=== PATIENT | female | born 1995 | race Caucasian/White ===

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

== ENCOUNTER 2017-09-20 14:40 | Emergency (ER) | payer MEDICAID ==
[~2017-09-20 14:40] MED LIST: ZITHTAB PO
[2017-09-20 14:41] VITALS: BP 158/83; PULSE 86; RESP 16; TEMP 97.7; O2SAT 99
[2017-09-20] MEDS ORDERED: LEXA5TAB PO (15:43)
[2017-09-20] MEDS ORDERED: AMPH1TAB40 PO (15:43)
[2017-09-20] MEDS ORDERED: TRAZ50TA12 PO (15:43)
--- NOTE | 2017-09-20 15:57 | PD ---
HPI . Upper respiratory symptoms Chief Complaint: ENT Complaint Time Seen by Provider: 14:52 Travel History International Travel<30 days: No Contact w/Intl Traveler<30days: No Traveled to known affect area: No History of Present Illness HPI 22-year-old female presents emergency department for evaluation of right ear pressure, nasal congestion, cough and sore throat. The right ear pressure has been present 2 days. The nasal congestion and sore throat has been several weeks. Patient was treated 3 weeks ago for strep throat. Patient denies any fever, chills, chest pain, shortness breath, abdominal pain, nausea, vomiting, diarrhea. Patient's only major medical history is depression. PFSH Past Medical History Asthma: No Heart Rhythm Problems: No Chest Pain: No GERD: No Headaches: No ?: Not LMP: 09/06/2017 Social History Tobacco Use: No Substance Use: No Allergies-Medications (Allergen,Severity, Reaction): Coded Allergies: amoxicillin (Unverified Allergy, Severe, 09/20/17) Reported Meds & Prescriptions Reported Meds & Active Scripts Active Reported Lexapro (Escitalopram Oxalate) 5 Mg Tab 5 Mg PO DAILY Trazodone (Trazodone HCl) 50 Mg Tab 50 Mg PO HS Adderall (Amphetamine-Dextroamphetamine) 7.5 Mg Tab 7.5 Mg PO DAILY Avoid late evening doses. Space doses at least 4 to 6 hours if more than once/day dosing. Review of Systems Except as stated in HPI: all other systems reviewed are Neg HENT: Positive: Sore Throat, Congestion, Earache (right-sided) Respiratory: Positive: Cough Physical Exam Narrative GENERAL: Well-nourished, well-developed 22-year-old female patient in no acute distress. Nontoxic appearing. SKIN: Focused skin assessment warm/dry. HEAD: Normocephalic. Atraumatic. EYES: No scleral icterus. No injection or drainage. EARS: Bilateral pinnae and external canals appear within normal limits. Bilateral tympanic membranes without erythema, dullness or perforation. Mild to moderate wax buildup noted in bilateral ear canals. THROAT: Mild pharyngeal injection with tonsillar hypertrophy noted. No exudates. Airway is patent. NECK: Supple, trachea midline. No JVD or lymphadenopathy. CARDIOVASCULAR: Regular rate and rhythm without murmurs, gallops, or rubs. RESPIRATORY: Breath sounds equal bilaterally. No accessory muscle use. GASTROINTESTINAL: Abdomen soft, non-tender, nondistended. MUSCULOSKELETAL: No cyanosis, or edema. Data Data Last Documented VS Vital Signs Date Time Temp Pulse Resp B/P (MAP) Pulse Ox O2 Delivery O2 Flow Rate FiO2 09/20/17 14:41 97.7 86 16 158/83 (108) 99 Orders Orders Ed Urine Pregnancytest Poc (09/20/17 15:22) Group A Rapid Strep Screen (09/20/17 15:52) Strep Culture (Group A) (09/20/17 16:00) MDM Medical Decision Making Medical Screen Exam Complete: Yes Emergency Medical Condition: Yes Differential Diagnosis Differential diagnoses include but are not limited to pharyngitis, otitis media , URI Narrative Course 22-year-old female patient presents emergency department for evaluation of right ear pressure, cough, nasal congestion and sore throat. Patient was treated 3 weeks ago for strep pharyngitis. On physical exam is noted that the patient's pharyngeal region is mildly erythematous with bilateral tonsillar hypertrophy. Rapid strep ordered and pending. Rapid strep negative. Patient will be discharged home with supportive care, prescription for Claritin and Flonase. Patient given instructions to return the emergency Department with any worsening condition but otherwise follow-up primary care. Diagnosis Primary Impression: Upper respiratory infection Qualified Codes: J06.9 - Acute upper respiratory infection, unspecified Referrals: Primary Care Physician Patient Instructions: General Instructions, Upper Respiratory Infection (ED) Additional Instructions: Please return to emergency department if your symptoms return or worsen. Follow up with your primary care provider. Take medications as prescribed. Supportive care, stay hydrated, get enough rest, diet as tolerated [id number] Ibuprofen or Tylenol as needed for pain or fevers. Med/Other Pt SpecificInfo: Prescription(s) given Scripts Fluticasone Nasal [place] (Flonase Nasal [place]) 50 Mcg/Act [place] 50 MCG EACH NARE BID for Allergies, #1 BOTTLE 0 Refills Prov: Hannah Pierce 09/20/17 Loratadine (Claritin) 10 Mg Cap 10 MG PO DAILY for Allergy Management for 14 Days, #14 CAP 0 Refills Prov: Hannah Pierce 09/20/17 Disposition: 01 DISCHARGE HOME Condition: Stable Hannah Pierce Sep 20, 2017 15:57
[2017-09-20] MEDS ORDERED: CLAR10CA3 PO (16:44)
[2017-09-20] MEDS ORDERED: FLUT1SPR5 EACH NARE (16:44)
== END 2017-09-20 17:21 | disposition home or self-care (01) ==
LOC: NEPK 14:40
DX: J06.9 Acute upper respiratory infection, unspecified (principal); Z79.899 Other long term (current) drug therapy; Z88.0 Allergy status to penicillin
CPT/HCPCS: 84703; 87081; 87880; 99284

== ENCOUNTER 2017-11-10 11:03 | Emergency (ER) | payer MEDICAID ==
[~2017-11-10] VITALS: Ht 152.4 cm; Wt 81.8 kg
[~2017-11-10 11:03] MED LIST changes: +AMPH1TAB40 PO; +CLAR10CA3 PO; +FLUT1SPR5 EACH NARE; +LEXA5TAB PO; +TRAZ50TA12 PO; -ZITHTAB PO
[2017-11-10 11:04] VITALS: BP 146/74; PULSE 100; RESP 18; TEMP 98; O2SAT 99
[2017-11-10] MEDS ORDERED: OSEL75 PO (12:04)
--- NOTE | 2017-11-10 12:13 | PD ---
HPI Chief Complaint: Cold / Flu Symptoms Time Seen by Provider: 11:51 Travel History International Travel<30 days: No Contact w/Intl Traveler<30days: No Traveled to known affect area: No History of Present Illness HPI 22-year-old female that presents to the ED for evaluation of cold-like symptoms. Patient has a history of a son who was recently diagnosed with the flu in this hospital as well as multiple family members are currently staying with her to have been diagnosed with the flu themselves. They all been put on Tamiflu and she states that she's had symptoms for about 2 days that are similar to everybody else's. Per patient she's having body aches, fevers, sore throat, cough and congestion. She has no medical issues. No chest pain or shortness of breath. She denies any history of asthma or smoking. She has an allergy to amoxicillin. She denies any possibility of . No other medical issues. She is taking OTC meds with minimal relief. She denies any other medical issues. No recent travel. PFSH Past Medical History Asthma: No Heart Rhythm Problems: No Chest Pain: No GERD: No Headaches: No ?: Not LMP: 10/27/2017 Social History Tobacco Use: No Substance Use: No Allergies-Medications (Allergen,Severity, Reaction): Coded Allergies: amoxicillin (Unverified Allergy, Severe, 09/20/17) Reported Meds & Prescriptions Reported Meds & Active Scripts Active Tamiflu (Oseltamivir Phosphate) 75 Mg Cap 75 Mg PO BID 5 Days Flonase Nasal [place] (Fluticasone Nasal [place]) 50 Mcg/Act [place] 50 Mcg EACH NARE BID Claritin (Loratadine) 10 Mg Cap 10 Mg PO DAILY 14 Days Reported Lexapro (Escitalopram Oxalate) 5 Mg Tab 5 Mg PO DAILY Trazodone (Trazodone HCl) 50 Mg Tab 50 Mg PO HS Adderall (Amphetamine-Dextroamphetamine) 7.5 Mg Tab 7.5 Mg PO DAILY Avoid late evening doses. Space doses at least 4 to 6 hours if more than once/day dosing. Review of Systems Except as stated in HPI: all other systems reviewed are Neg Physical Exam Narrative GENERAL: Well-nourished, well-developed patient in no apparent distress. SKIN: Warm and dry. HEAD: Atraumatic. Normocephalic. EYES: Pupils equal and round reactive to light and accommodation. No scleral icterus. No injection or drainage. ENT: No nasal bleeding or discharge. Mucous membranes pink and moist. TMs are clear with no sign of infection or perforation. No mastoid tenderness. Ear canals are intact bilaterally. No lymphadenopathy. Nostril mucosa is red and moist with clear mucus noted. No sinus tenderness to palpation noted. Tonsils are not enlarged or swollen. No ulvua Deviation. Tongue is midline. NECK: Trachea midline. No JVD. No meningeal signs noted CARDIOVASCULAR: Regular rate and rhythm. RESPIRATORY: No accessory muscle use. Clear to auscultation. Breath sounds equal bilaterally. GASTROINTESTINAL: Abdomen soft, non-tender, nondistended. Hepatic and splenic margins not palpable. MUSCULOSKELETAL: Extremities without clubbing, cyanosis, or edema. No obvious deformities. NEUROLOGICAL: Awake and alert. No obvious cranial nerve deficits. Motor grossly within normal limits. Five out of 5 muscle strength in the arms and legs. Normal speech. PSYCHIATRIC: Appropriate mood and affect; insight and judgment normal. Data Data Last Documented VS Vital Signs Date Time Temp Pulse Resp B/P (MAP) Pulse Ox O2 Delivery O2 Flow Rate FiO2 11/10/17 11:04 98.0 100 18 146/74 (98) 99 Room Air Orders Orders Influenzae A/B Antigen (11/10/17 11:21) Ed Discharge Order (11/10/17 12:13) MDM Medical Decision Making Medical Screen Exam Complete: Yes Emergency Medical Condition: Yes Medical Record Reviewed: Yes Interpretation(s) flu negative Differential Diagnosis Influenza versus viral illness versus pneumonia versus bronchitis Narrative Course 22-year-old female that presents to the ED for evaluation of possible flu. Patient was properly examined and was found to have signs and symptoms which appear to be very consistent with influenza. Patient has multiple family members that have been diagnosed with the flu with test. Flu test was done in triage and was negative. I am concern this might be a false negative as she does have multiple family members with diagnosed flu by test at her home. Patient will be given prescription for Tamiflu to cover for this, she was told of potential side effects. Told to take OTC meds as needed. Follow with PCP. See ED worsening symptoms. Diagnosis Primary Impression: Influenza Patient Instructions: General Instructions Departure Forms: Tests/Procedures, Work Release Enter return to work date: Nov 13, 2017 Additional Instructions: Motrin and Tylenol for pain and fever. You can use [id number] antihistamine as well as well as Mucinex as needed for runny nose and congestion. Cough drops for cough as needed. Drink plenty of fluids. Follow-up with PCP. See ED for worsening symptoms. Med/Other Pt SpecificInfo: Prescription(s) given Scripts Oseltamivir (Tamiflu) 75 Mg Cap 75 MG PO BID for Mgmt Viral Infection for 5 Days, #10 CAP 0 Refills Prov: Mariah Tompkins MD 11/10/17 Disposition: 01 DISCHARGE HOME Condition: Stable Holland Cartwright Nov 10, 2017 12:13
== END 2017-11-10 13:55 | disposition home or self-care (01) ==
LOC: NEPD 11:03
DX: J11.1 Influenza due to unidentified influenza virus with other respiratory manifestations (principal); Z88.0 Allergy status to penicillin; Z79.899 Other long term (current) drug therapy
CPT/HCPCS: 87804; 99283

== ENCOUNTER 2017-11-25 12:07 | Emergency (ER) | payer MEDICAID ==
[~2017-11-25] VITALS: Ht 152.4 cm; Wt 84.1 kg
[~2017-11-25 12:07] MED LIST changes: +OSEL75 PO
[2017-11-25 12:09] VITALS: BP 148/82; PULSE 107; RESP 16; TEMP 97.9; O2SAT 100
--- NOTE | 2017-11-25 13:00 | PD ---
HPI Chief Complaint: Chest Pain Time Seen by Provider: 12:43 Travel History International Travel<30 days: No Contact w/Intl Traveler<30days: No Traveled to known affect area: No History of Present Illness HPI This is a 22-year-old female who presents to the emergency department having woken up in the middle the night feeling some left-sided chest discomfort described as sharp and stabbing associated with numbness and tingling all over her body. She got up and walked and then felt generally weak and slumped over. She did not completely pass out. Her symptoms have since resolved. She reports that over the past several months she has been having palpitations and feeling like her heart races. She has never had a checked out. She denies hypertension, hyperlipidemia, diabetes, smoking, drug use and family history is significant for her father having had a stroke in his 30s but he was a drug user at the time. There is no sudden history in the family. PFSH Past Medical History Asthma: No Heart Rhythm Problems: No Chest Pain: No Diminished Hearing: No GERD: No Headaches: No ?: Not Past Surgical History Section: Yes (x 1) Gynecologic Surgery: Yes ( ) Social History Alcohol Use: Yes (occ) Tobacco Use: No Substance Use: No Allergies-Medications (Allergen,Severity, Reaction): Coded Allergies: amoxicillin (Unverified Allergy, Severe, 11/25/17) Reported Meds & Prescriptions Reported Meds & Active Scripts Active No Active Prescriptions or Reported Medications Review of Systems Except as stated in HPI: all other systems reviewed are Neg Physical Exam Narrative GENERAL:Well appearing, no acute distress SKIN: Focused skin assessment warm and dry. HEAD: Atraumatic. Normocephalic. EYES: Pupils equal and round. No injection or drainage. ENT: Moist mucous membranes NECK: Trachea midline. CARDIOVASCULAR: Regular rate and rhythm. No murmur appreciated. RESPIRATORY: Clear to auscultation. Breath sounds equal bilaterally. GASTROINTESTINAL: Abdomen soft, non-tender, nondistended. MUSCULOSKELETAL: No obvious deformities. NEUROLOGICAL: Awake and alert. No obvious cranial nerve deficits. Moving all extremities. PSYCHIATRIC: Appropriate mood and affect; insight and judgment normal. Data Data Last Documented VS Vital Signs Date Time Temp Pulse Resp B/P (MAP) Pulse Ox O2 Delivery O2 Flow Rate FiO2 11/25/17 12:09 97.9 107 16 148/82 (104) 100 Orders Orders Electrocardiogram (11/25/17 12:27) Basic Metabolic Panel (Bmp) (11/25/17 12:27) Ckmb (Isoenzyme) Profile (11/25/17 12:27) Complete Blood Count With Diff (11/25/17 12:27) Magnesium (Mg) (11/25/17 12:27) Troponin I (11/25/17 12:27) Chest, Pa & Lat (11/25/17 12:27) Ed Urine Pregnancytest Poc (11/25/17 12:27) Labs Laboratory Tests Test 11/25/17 13:00 White Blood Count 9.8 TH/MM3 Red Blood Count 4.33 MIL/MM3 Hemoglobin 13.6 GM/DL Hematocrit 39.5 % Mean Corpuscular Volume 91.1 FL Mean Corpuscular Hemoglobin 31.4 PG Mean Corpuscular Hemoglobin Concent 34.4 % Red Cell Distribution Width 13.3 % Platelet Count 325 TH/MM3 Mean Platelet Volume 7.6 FL Neutrophils (%) (Auto) 63.4 % Lymphocytes (%) (Auto) 28.6 % Monocytes (%) (Auto) 6.1 % Eosinophils (%) (Auto) 1.5 % Basophils (%) (Auto) 0.4 % Neutrophils # (Auto) 6.2 TH/MM3 Lymphocytes # (Auto) 2.8 TH/MM3 Monocytes # (Auto) 0.6 TH/MM3 Eosinophils # (Auto) 0.1 TH/MM3 Basophils # (Auto) 0.0 TH/MM3 CBC Comment DIFF FINAL Differential Comment Blood Urea Nitrogen 16 MG/DL Creatinine 0.74 MG/DL Random Glucose 89 MG/DL Calcium Level 9.0 MG/DL Magnesium Level 1.9 MG/DL Sodium Level 138 MEQ/L Potassium Level 4.1 MEQ/L Chloride Level 105 MEQ/L Carbon Dioxide Level 28.7 MEQ/L Anion Gap 4 MEQ/L Estimat Glomerular Filtration Rate 100 ML/MIN Total Creatine Kinase 96 U/L Troponin I LESS THAN 0.02 NG/ML MDM Medical Decision Making Medical Screen Exam Complete: Yes Emergency Medical Condition: Yes Interpretation(s) No leukocytosis Electrolytes are reassuring Troponin is normal EKG: Normal sinus rhythm with no ST changes Differential Diagnosis Arrhythmia, dehydration, , acute coronary syndrome, electrolyte abnormality Narrative Course This is a 22-year-old female who presents to the emergency department with lightheadedness and some chest discomfort that started this morning. She feels back to normal now. Labs were obtained which are reassuring including a normal troponin. EKG is nonischemic and demonstrates no arrhythmia. I think patient can safely be discharged home. Her symptoms may be consistent with an intermittent arrhythmia. She likely requires outpatient evaluation with a Holter monitor by her primary care physician. Diagnosis Primary Impression: Dizziness Patient Instructions: General Instructions Additional Instructions: If you develop severe chest pain, shortness of breath, sweating, lightheadedness , dizziness or difficulty breathing return to the emergency department immediately. Followup with your primary care physician in 2-3 days if your symptoms are not resolved and they may consider putting on a Holter monitor to evaluate you for an abnormal heart rhythm. Med/Other Pt SpecificInfo: No Change to Meds Scripts No Active Prescriptions or Reported Meds Disposition: 01 DISCHARGE HOME Condition: Stable Mariah Tompkins MD Nov 25, 2017 13:00
[2017-11-25 13:15] LABS: AUTOMATED NEUTROPHIL # 6.2 TH/MM3 (1.8-7.7); BASOPHIL % 0.4 % (0.0-2.0); EOSINOPHIL # 0.1 TH/MM3 (0-0.4); EOSINOPHIL % 1.5 % (0.0-4.0); HEMATOCRIT 39.5 % (35.0-46.0); HEMOGLOBIN 13.6 GM/DL (11.6-15.3); LYMPH % 28.6 % (9.0-44.0); LYMPHOCYTE # 2.8 TH/MM3 (1.0-4.8); MEAN CELL VOLUME 91.1 FL (80.0-100.0); MEAN CORPUSCULAR HEMOGLOBIN 31.4 PG (27.0-34.0); MEAN CORPUSCULAR HGB CONC 34.4 % (32.0-36.0); MEAN PLATELET VOLUME 7.6 FL (7.0-11.0); MONO % 6.1 % (0.0-8.0); MONOCYTE # 0.6 TH/MM3 (0-0.9); NEUT % 63.4 % (16.0-70.0); PLATELET COUNT 325 TH/MM3 (150-450); RED BLOOD COUNT 4.33 MIL/MM3 (4.00-5.30); RED CELL DISTRIBUTION WIDTH 13.3 % (11.6-17.2); WHITE BLOOD COUNT 9.8 TH/MM3 (4.0-11.0)
[2017-11-25 13:33] LABS: BICARBONATE 28.7 MEQ/L (21.0-32.0); BLOOD UREA NITROGEN 16 MG/DL (7-18); CHLORIDE 105 MEQ/L (98-107); CREATININE 0.74 MG/DL (0.50-1.00); GLOMERULAR FILTRATION RATE 100 ML/MIN (>89); GLUCOSE,RANDOM 89 MG/DL (74-106); MAGNESIUM 1.9 MG/DL (1.5-2.5); SODIUM (NA) 138 MEQ/L (136-145)
[2017-11-25 13:36] LABS: TROPONIN I LESS THAN 0.02 NG/ML (0.02-0.05)
--- NOTE | 2017-11-25 14:00 | RADRPT ---
EXAM DATE/TIME: 11/25/2017 13:03 [facility] COMPARISON: No previous studies available for comparison. INDICATIONS : Chest pain, short of breath and feels like heart is beating very fast MEDICAL HISTORY : None. SURGICAL HISTORY : None. ENCOUNTER: Initial ACUITY: 1 month PAIN SCORE: 5/10 LOCATION: Bilateral chest FINDINGS: PA and lateral views of the chest demonstrate the lungs to be symmetrically aerated without evidence of mass, infiltrate or effusion. The cardiomediastinal contours are unremarkable. Osseous structure s are intact. CONCLUSION: No acute disease. Mt Powers MD on November 25, 2017 at 13:53 Board Certified Radiologist. This report was verified electronically.
[2017-11-25 14:17] VITALS: BP 130/60
--- NOTE | 2017-11-26 14:33 | EKG ---
Date Performed: 11/25/2017 Time Performed: 12:54:33 PTAGE: 22 years EKG: Sinus rhythm WITH MARKED SINUS ARRHYTHMIA BORDERLINE ECG NO PREVIOUS TRACING DOCTOR: Meg Dumont Interpretating Date/Time 11/26/2017 14:28:09
== END 2017-11-25 14:18 | disposition home or self-care (01) ==
LOC: NEPD 12:07
DX: R42 Dizziness and giddiness (principal); R20.0 Anesthesia of skin; R07.89 Other chest pain
CPT/HCPCS: 71046; 80048; 82550; 83735; 84484; 84703; 85025; 93005

== ENCOUNTER 2017-12-28 13:57 | Emergency (ER) | payer MEDICAID ==
[2017-12-28 14:26] VITALS: BP 134/67; PULSE 94; RESP 16; TEMP 98.1; O2SAT 99
--- NOTE | 2017-12-28 15:19 | PD ---
HPI Chief Complaint: Cold / Flu Symptoms Time Seen by Provider: 15:15 Travel History International Travel<30 days: No Contact w/Intl Traveler<30days: No Traveled to known affect area: No History of Present Illness HPI 22-year-old female here with sore throat, nasal congestion, cough 2 days. Symptoms severity is mild. No aggravating or alleviating factors. No sick contacts or foreign travel. Denies fever or chills. PFSH Past Medical History ADHD: Yes Asthma: No Depression: Yes Heart Rhythm Problems: No Chest Pain: No Diminished Hearing: No GERD: No Headaches: No ?: Unknown LMP: 3 weeks ago : 1 Para: 1 Past Surgical History Section: Yes (x 1) Gynecologic Surgery: Yes ( ) Social History Alcohol Use: Yes (occ) Tobacco Use: No Substance Use: No Allergies-Medications (Allergen,Severity, Reaction): Coded Allergies: amoxicillin (Unverified Allergy, Severe, 11/25/17) Reported Meds & Prescriptions Reported Meds & Active Scripts Active No Active Prescriptions or Reported Medications Review of Systems Except as stated in HPI: all other systems reviewed are Neg Physical Exam Narrative GENERAL: Alert and well-appearing 22-year-old female. SKIN: Warm and dry. HEAD: Normocephalic. EYES: No injection or drainage. Ear/nose/throat: No TM erythema. Clear nasal discharge. Mild pharyngeal erythema without tonsillar hypertrophy or exudate. Uvula is midline. Airway is patent. NECK: Supple CARDIOVASCULAR: Regular rate and rhythm without murmurs, gallops, or rubs. RESPIRATORY: Breath sounds equal bilaterally. No accessory muscle use. Data Data Last Documented VS Vital Signs Date Time Temp Pulse Resp B/P (MAP) Pulse Ox O2 Delivery O2 Flow Rate FiO2 12/28/17 14:26 98.1 94 16 134/67 (89) 99 Orders Orders Ed Discharge Order (12/28/17 15:19) MDM Medical Decision Making Medical Screen Exam Complete: Yes Emergency Medical Condition: Yes Differential Diagnosis URI, influenza, bronchitis, pneumonia Narrative Course 22-year-old female here with mild viral upper respiratory like illness. She is nontoxic appearing. Vital signs are stable. Symptomatic treatment was discussed. Diagnosis Primary Impression: URI (upper respiratory infection) Qualified Codes: J06.9 - Acute upper respiratory infection, unspecified Referrals: Primary Care Physician Departure Forms: Tests/Procedures, Work Release Enter return to work date: Dec 31, 2017 Additional Instructions: Tylenol and ibuprofen as needed for pain and fever. Stable hydrated. Rest Scripts No Active Prescriptions or Reported Meds Disposition: 01 DISCHARGE HOME Condition: Stable Alessandra Salgado Dec 28, 2017 15:19
== END 2017-12-28 16:15 | disposition home or self-care (01) ==
LOC: NEPK 13:57
DX: J06.9 Acute upper respiratory infection, unspecified (principal)
CPT/HCPCS: 99282